=== PATIENT | female | born 1995 | race Caucasian/White ===

== ENCOUNTER 2022-12-31 09:55 | Outpatient (CLI) | payer OTHER, SELFPAY ==
[2022-12-31 11:35] LABS: Beta HCG Quantitative < 2.39 mIU/ML
[2023-01-04 04:47] LABS: Progesterone <0.2 ng/mL (***)
== END 2022-12-31 09:56 | disposition home or self-care (01) ==
PROVIDERS: Visit Provider Obstetrics & Gynecology
DX: O20.0 Threatened abortion (principal); Z3A.00 Weeks of gestation of pregnancy not specified
CPT/HCPCS: 36415; 84144; 84702

== ENCOUNTER 2023-05-02 14:21 | Outpatient (CLI) | payer OTHER, SELFPAY ==
[2023-05-02 15:48] LABS: Beta HCG Quantitative < 2.39 mIU/ML
== END 2023-05-02 14:22 | disposition home or self-care (01) ==
LOC: ANHLAB 14:23
PROVIDERS: Visit Provider Obstetrics & Gynecology
DX: N92.5 Other specified irregular menstruation (principal)
CPT/HCPCS: 36415; 84702

== ENCOUNTER 2023-06-04 11:42 | Outpatient (CLI) | payer OTHER, SELFPAY ==
--- NOTE | ~2023-06-04 | XR_ITS ---
EXAMINATION: XR hysterosalpingogram DATE: 06/04/2023 12:12 INDICATION: Infertility TECHNIQUE: 2 fluoroscopic images were obtained during contrast infusion into the endometrial canal of the uterus by the primary physician. Fluoroscopy exposure time was 0.4 minutes. FINDINGS: The uterine cavity demonstrates normal morphology. The fallopian tubes are normal in caliber and pat ent bilaterally. There is normal spillage of contrast into the peritoneum on both sides. IMPRESSION: 1. Normal hysterosalpingogram. Reviewed, dictated and finalized at location A. [employer]ATCH[employer]
== END 2023-06-04 11:43 | disposition home or self-care (01) ==
PROVIDERS: PCP Physician Assistant; Visit Provider Obstetrics & Gynecology
DX: N97.0 Female infertility associated with anovulation (principal)
CPT/HCPCS: 58340; 74740; Q9966

== ENCOUNTER 2023-07-24 12:09 | Outpatient (CLI) | payer OTHER, SELFPAY ==
[2023-07-24 13:54] LABS: Beta HCG Quantitative 169.26 mIU/ML
[2023-07-27 07:36] LABS: Progesterone 47.5 ng/mL (***)
== END 2023-07-24 12:10 | disposition home or self-care (01) ==
LOC: ANHLAB 12:11
PROVIDERS: PCP Physician Assistant; Visit Provider Obstetrics & Gynecology
DX: Z34.91 Encounter for supervision of normal pregnancy, unspecified, first trimester (principal); Z3A.00 Weeks of gestation of pregnancy not specified
CPT/HCPCS: 36415; 84144; 84702

== ENCOUNTER 2023-07-26 08:42 | Outpatient (CLI) | payer OTHER, SELFPAY | END 2023-07-26 08:43 | disposition home or self-care (01) | LOC: ANHLAB 08:44 | PROVIDERS: PCP Physician Assistant; Visit Provider Obstetrics & Gynecology | DX: Z34.80 Encounter for supervision of other normal pregnancy, unspecified trimester (principal); Z3A.00 Weeks of gestation of pregnancy not specified | CPT/HCPCS: 36415; 84702 ==

== ENCOUNTER 2023-07-30 06:56 | Outpatient (CLI) | payer OTHER, SELFPAY ==
[2023-08-02 06:27] LABS: Progesterone 27.7 ng/mL (***)
== END 2023-07-30 06:57 | disposition home or self-care (01) ==
LOC: ANHLAB 06:58
PROVIDERS: PCP Physician Assistant; Visit Provider Obstetrics & Gynecology
DX: Z34.90 Encounter for supervision of normal pregnancy, unspecified, unspecified trimester (principal); Z3A.00 Weeks of gestation of pregnancy not specified
CPT/HCPCS: 36415; 84144; 84702

== ENCOUNTER 2023-08-05 06:43 | Outpatient (CLI) | payer OTHER, SELFPAY ==
[2023-08-08 06:33] LABS: Progesterone 23.6 ng/mL (***)
== END 2023-08-05 06:44 | disposition home or self-care (01) ==
LOC: ANHLAB 06:44
PROVIDERS: PCP Physician Assistant; Visit Provider Obstetrics & Gynecology
DX: Z34.90 Encounter for supervision of normal pregnancy, unspecified, unspecified trimester (principal); Z3A.00 Weeks of gestation of pregnancy not specified
CPT/HCPCS: 36415; 84144; 84702

== ENCOUNTER 2024-01-16 16:40 | Outpatient (RCR) | payer OTHER, SELFPAY ==
[2024-01-16] MEDS: RHO(D) IMMUNE GLOBULIN 300 MCG/2 ML SYRINGE IM (20:50)
== END 2024-04-15 23:59 | disposition home or self-care (01) ==
LOC: ANHLAB 16:40
PROVIDERS: PCP Physician Assistant; Visit Provider Obstetrics & Gynecology
DX: Z29.13 Encounter for prophylactic Rho(D) immune globulin (principal); O36.0190 Maternal care for anti-D [Rh] antibodies, unspecified trimester, not applicable or unspecified; Z3A.00 Weeks of gestation of pregnancy not specified
CPT/HCPCS: 36415; 85461; 86850; 86900; 86901; 90384; J2790

== ENCOUNTER 2024-01-31 14:53 | Outpatient (CLI) | payer OTHER, SELFPAY ==
[2024-01-31] VITALS (14 sets, daily range): BP systolic 140–156; BP diastolic 73–85; PULSE 75–89; BMI 37.6
[2024-01-31 16:05] LABS: Basophils Percent Auto 0.2 % (0.2-1.2); Hemoglobin 11.8 g/dL (12.0-15.0); Immature Granulocyte Absolute 0.18 K/mm3 (0.00-0.031); Immature Granulocyte Percent A 1.4 % (0-0.5); Lymphocytes Absolute Auto 2.29 K/mm3 (0.9-3.2); Lymphocytes Percent Auto 17.3 % (18.3-44.2); Mean Corpuscular HGB Conc 32.8 g/dl (32-36); Mean Corpuscular Hemoglobin 31.6 pg (26-34); Mean Corpuscular Volume 96.3 fl (80-100); Mean Platelet Volume 10.4 fl (7.4-10.4); Monocytes Absolute Auto 1.3 K/mm3 (0.1-0.6); Monocytes Percent Auto 9.5 % (2.6-8.5); Neutrophils Absolute Auto 9.5 K/mm3 (1.3-6.7); Neutrophils Percent Auto 71.6 % (45.5-73.1); Nucleated Red Blood Cells Perc 0.2 % (0.0-0.2); Platelet Count Result 232 k/mm3 (150-375); Red Blood Count 3.74 M/mm3 (4.2-5.4); Red Cell Distribution Width 13.3 % (11.5-14.5); White Blood Count 13.3 K/mm3 (4.5-10.0)
[2024-01-31 16:11] LABS: Creatinine Urine 28.7 mg/dL; Total Protein Urine Random 17 mg/dL; Ur Ttl Prot Creatinine Ratio 0.59 mg/mg (0-0.20)
[2024-01-31 16:13] LABS: Add Urine Microscopic? YES; Appearance Urine Clear (Clear); Bacteria Urine None Seen /hpf; Bilirubin Urine Negative (Negative); Blood Urine Negative (Negative); Color Urine Yellow (Yellow); Glucose Urine UA Negative (Negative); Ketones Urine Negative (Negative); Leukocyte Esterase Ur 1+ LEU/UL (Negative); Need Manual Microscopic Reviewed; Nitrate Urine Negative (Negative); Non Pathogenic Casts 0-2; Protein Urine Negative (Negative); RBC Urine 0-2 /hpf (0-2); Specific Grav Ur 1.007 (1.001-1.035); Squamous Epithelial Cell Urine Occasional /hpf (Few); Urobilinogen Urine 0.2 mg/dL (<2.0); WBC Urine 0-5 /hpf (0-3)
[2024-01-31 16:18] LABS: Alanine Aminotransferase 11 U/L (6-35); Albumin Level 3.2 g/dL (3.5-5.1); Alkaline Phosphatase 84 U/L (38-126); Anion Gap 8 mmol/L (4-12); Aspartate Amino Transferase 16 U/L (14-36); Bilirubin,Total 0.2 mg/dL (0.2-1.3); Blood Urea Nitrogen 11 mg/dL (7-17); Calcium 9.4 mg/dL (8.4-10.2); Carbon Dioxide 20 mmol/L (22-30); Chloride 106 mmol/L (98-107); Estimated CRCL calculation 176 ml/min; Estimated Glomerular Filt Rate > 60; Glucose 108 mg/dL (65-110); Potassium 3.9 mmol/L (3.4-5.0); Sodium 134 mmol/L (137-145); Uric Acid 5.6 mg/dL (2.5-7.5)
[2024-01-31] MEDS: NIFEdipine 10 MG CAPSULE 20 MG PO (16:34)
--- NOTE | 2024-01-31 16:49 | PC.NURSE ---
6209--Report to Dr. Mar re: BP's, fhr tracings, assessment findings, and lab results. Orders for procardia 20mg po now and continue to watch BP's for the next hour and to DC fhr monitoring at this time.
--- NOTE | 2024-01-31 17:57 | PC.NURSE ---
1755--Report to Dr. Mar re: BP's since Procardia. Orders to DC pt. home with procardia 20mg po BID, and instructions for 24hr urine.
== END 2024-01-31 18:15 | disposition home or self-care (01) ==
LOC: ANHOBOP 15:01 → ANHOBPP 15:02
PROVIDERS: PCP Physician Assistant; Visit Provider Obstetrics & Gynecology
DX: O13.9 Gestational [pregnancy-induced] hypertension without significant proteinuria, unspecified trimester (principal); Z3A.00 Weeks of gestation of pregnancy not specified
CPT/HCPCS: 36415; 59025; 80053; 81001; 82570; 84156; 84550; 85025; 99199; A9270

== ENCOUNTER 2024-02-01 18:54 | Outpatient (CLI) | payer OTHER, SELFPAY ==
[2024-02-01 21:18] LABS: Collection Time Urine 24 HOURS; Total Volume 24 Hour Urine 3000 ml
[2024-02-01 21:23] LABS: Specific Gravity Ur 1.015
[2024-02-01 21:28] LABS: Creatinine Urine 61.7 mg/dL; Total Protein Urine 24 Hr 450 mg/24hr (28-141); Total Protein Urine Random 15 mg/dL
[2024-02-01 21:40] LABS: Creatinine Clearance Urine 204.2 ml/min (75-125); Patient Weight 240 Lbs
== END 2024-02-01 18:55 | disposition home or self-care (01) ==
LOC: ANHOBOP 19:01
PROVIDERS: PCP Physician Assistant; Visit Provider Obstetrics & Gynecology
DX: O13.9 Gestational [pregnancy-induced] hypertension without significant proteinuria, unspecified trimester (principal); Z3A.00 Weeks of gestation of pregnancy not specified
CPT/HCPCS: 81050; 82575; 84156

== ENCOUNTER 2024-02-10 15:54 | Observation (INO) | payer OTHER, SELFPAY ==
[2024-02-10] VITALS (38 sets, daily range): BP systolic 137–186; BP diastolic 74–93; PULSE 81–116; RESP 20; TEMP 37; O2SAT 98
--- NOTE | ~2024-02-10 | US_ITS ---
LIMITED OBSTETRIC ULTRASOUND/BIOPHYSICAL PROFILE Ordering provider: Raul Osborne MD History: . HTN - Twins . Comparison: None. FINDINGS: Twin . Ultrasound age is 32 weeks 6 days for baby B and 32 weeks for baby A. PRESENTATION: A and B Vertex.. Longitudinal lie. PLACENTAL LOCATION: Anterior No previa. HEART RATE: A and B 153 bpm (normal is between 110 to 160 bpm). AMNIOTIC FLUID INDEX: Largest vertical pocket is 7.3 cm. Estimated weight for baby A is 2032 gm EFW/GP is 39.6%. Estimated weight for baby 2111gm. EFW/GP ages 51.4%. SCORE: A and B breathing movements: 2 movements: 2 tone: 2 Amniotic fluid volume: 2 Total: 8 IMPRESSION: Monochorionic Monochorionic monoamniotic Twin . Normal biophysical profile. Reviewed, dictated and finalized at location A. IMPRESSION: Monochorionic Monochorionic monoamniotic Twin . Normal biophysical profile.
--- NOTE | 2024-02-10 12:00 | OBADM ---
This patient, Valorie Arana, admitted to the OB room [facility] for observation. Patient/family oriented to hospital policies and general routines including ID bracelet, bed and alarms, visiting hours, pain management, procedures, bathroom and other care routines, personal items, smoking policy, room service/diet, and visiting hours. Patient/Family are encouraged to report perceived risks to care and to ask questions if they do not understand what they are told or what they should do.
--- NOTE | 2024-02-10 12:00 | PC.NURSE ---
Dr Osborne informed of BP's and difficultly monitoring the twins, orders received.
[2024-02-10] MEDS: NIFEdipine 10 MG CAPSULE PO ×2 (12:40→14:06)
[2024-02-10 12:41] LABS: Basophils Percent Auto 0.2 % (0.2-1.2); Hematocrit 37.5 % (37.0-47.0); Hemoglobin 12.7 g/dL (12.0-15.0); Immature Granulocyte Percent A 0.8 % (0-0.5); Lymphocytes Absolute Auto 2.27 K/mm3 (0.9-3.2); Lymphocytes Percent Auto 17.6 % (18.3-44.2); Mean Corpuscular HGB Conc 33.9 g/dl (32-36); Mean Corpuscular Hemoglobin 32.1 pg (26-34); Mean Corpuscular Volume 94.7 fl (80-100); Mean Platelet Volume 10.4 fl (7.4-10.4); Monocytes Percent Auto 7.8 % (2.6-8.5); Neutrophils Absolute Auto 9.5 K/mm3 (1.3-6.7); Neutrophils Percent Auto 73.6 % (45.5-73.1); Platelet Count Result 236 k/mm3 (150-375); Red Blood Count 3.96 M/mm3 (4.2-5.4); Red Cell Distribution Width 13.5 % (11.5-14.5); White Blood Count 12.9 K/mm3 (4.5-10.0)
[2024-02-10 12:46] LABS: Add Urine Microscopic? YES; Appearance Urine Clear (Clear); Bacteria Urine None Seen /hpf; Bilirubin Urine Negative (Negative); Blood Urine Trace (Negative); Color Urine Yellow (Yellow); Glucose Urine UA Negative (Negative); Ketones Urine Negative (Negative); Leukocyte Esterase Ur Trace LEU/UL (Negative); Nitrate Urine Negative (Negative); Non Pathogenic Casts 0-2; Protein Urine 2+ mg/dL (Negative); RBC Urine 0-2 /hpf (0-2); Specific Grav Ur 1.009 (1.001-1.035); Squamous Epithelial Cell Urine Moderate /hpf (Few); Urobilinogen Urine 0.2 mg/dL (<2.0)
[2024-02-10 12:51] LABS: Creatinine Urine 51.5 mg/dL; Total Protein Urine Random 129 mg/dL
[2024-02-10 12:59] LABS: Alanine Aminotransferase 15 U/L (6-35); Albumin Level 3.2 g/dL (3.5-5.1); Alkaline Phosphatase 89 U/L (38-126); Anion Gap 12 mmol/L (4-12); Aspartate Amino Transferase 22 U/L (14-36); Bilirubin,Total 0.4 mg/dL (0.2-1.3); Blood Urea Nitrogen 8 mg/dL (7-17); Calcium 8.9 mg/dL (8.4-10.2); Carbon Dioxide 17 mmol/L (22-30); Chloride 106 mmol/L (98-107); Estimated Glomerular Filt Rate > 60; Glucose 119 mg/dL (65-110); Potassium 4.2 mmol/L (3.4-5.0); Sodium 135 mmol/L (137-145); Uric Acid 6.6 mg/dL (2.5-7.5)
--- NOTE | 2024-02-10 13:49 | PC.NURSE ---
Dr Osborne updated on Lab results and Current BP's. New orders received.
--- NOTE | 2024-02-10 15:05 | PC.NURSE ---
Message left at office for Dr Osborne to return call.
--- NOTE | 2024-02-10 15:45 | PC.NURSE ---
Dr Osborne paged.
[2024-02-10] MEDS: LABETALOL HCL INJ 100 MG/20 ML VIAL 20 MG IV PUSH (16:14)
--- NOTE | 2024-02-10 18:55 | PM.IMHP ---
H&P: HPI History of Present Illness Date/Time: 02/10/24 18:55 Chief Complaint: Decreased movement Narrative: 28 y/o at 32 5/7 weeks with di/di twins, here with decreased movement. Her bp increased last week. She had a 24 hour urine protein last week at 450 mg, and bp has been stable on Procardia XL 30 mg bid. No headache, no abdominal pain, no visual field change. Here she was found to have bp in the 160/90 range. She was given two doses of nifedipine 10 mg, but bp did not respond. She then received labetalol 20 mg IV and bp is now in the 140/80 range. Rh neg, received Rhogam. GCT normal at 116. US has shown good growth, vtx/vtx. Review of Systems Review of Systems: All systems reviewed & are unremarkable except as noted in HPI and below PMFSH Past Medical History Medical History Asthma GERD (gastroesophageal reflux disease) Migraines Tremor Meds Home Medications and Allergies Home Medications Medication Instructions Recorded Confirmed Type loratadine 10 mg tablet (Claritin) 10 mg PO DAILY 01/31/24 01/31/24 History nifedipine 20 mg capsule 20 mg PO BID #28 caps 01/31/24 Rx pantoprazole 40 mg tablet,delayed 40 mg PO DAILY 01/31/24 01/31/24 History release propranolol 10 mg tablet 5 mg PO DAILY 01/31/24 01/31/24 History Allergies Allergy/AdvReac Type Severity Reaction Status Date / Time Sulfa (Sulfonamide Allergy Mild Rash Verified 01/03/23 12:06 Antibiotics) Vital Signs Vital Signs - 24 hr 02/10/24 12:36 02/10/24 12:45 02/10/24 13:17 Pulse Rate 88 81 89 Blood Pressure 166/89 H 157/88 H 160/93 H Oxygen Delivery 02/10/24 13:30 02/10/24 14:00 02/10/24 14:30 Pulse Rate 84 85 89 Blood Pressure 154/89 H 150/86 H 152/91 H Oxygen Delivery 02/10/24 15:00 02/10/24 15:30 02/10/24 16:00 Pulse Rate 105 H 116 H 111 H Blood Pressure 167/93 H 163/93 H 161/84 H Oxygen Delivery 02/10/24 16:17 02/10/24 16:20 02/10/24 16:25 Pulse Rate 91 92 90 Blood Pressure 143/76 H 140/78 138/75 Oxygen Delivery 02/10/24 16:30 02/10/24 16:35 02/10/24 16:40 Pulse Rate 91 95 90 Blood Pressure 142/79 H 143/83 H 143/83 H Oxygen Delivery 02/10/24 16:45 02/10/24 16:50 02/10/24 16:55 Pulse Rate 92 91 93 Blood Pressure 143/82 H 142/82 H 148/82 H Oxygen Delivery 02/10/24 17:00 02/10/24 17:05 02/10/24 17:10 Pulse Rate 95 95 89 Blood Pressure 139/80 137/83 139/77 Oxygen Delivery 02/10/24 17:15 02/10/24 17:20 02/10/24 17:25 Pulse Rate 92 93 92 Blood Pressure 142/74 H 147/77 H 145/74 H Oxygen Delivery 02/10/24 17:30 02/10/24 17:45 02/10/24 18:00 Pulse Rate 91 94 94 Blood Pressure 143/80 H 158/89 H 150/81 H Oxygen Delivery 02/10/24 18:30 02/10/24 18:45 02/10/24 16:14 Pulse Rate 89 92 98 Blood Pressure 148/84 H 155/82 H Oxygen Delivery 02/10/24 12:00 02/10/24 12:00 Pulse Rate Blood Pressure Oxygen Delivery Room Air Room Air Exam Const: Orientation/consciousness: patient oriented x3 Other: Well-developed, well-nourished female in no acute distress. Neck: Thyroid: thyroid normal Lymphatic: no lymphadenopathy noted (in neck, axilla or inguinal nodes) Resp: Effort & Inspection: normal respiratory effort Auscultation: clear to auscultation bilaterally Cardio: Rate: regular rate Rhythm: regular rhythm Heart sounds: S1 normal heart sound present and S2 normal heart sound present GI: Other: ABD: Soft, nontender, gravid. NST reactive x 2. No guarding or rebound tenderness. No hepatosplenomegaly. : General: Yes no CVA tenderness Other: Deferred Back/Spine/Pelvis: Back: no CVA tenderness Skin: General skin exam: normal color and no rashes or lesions noted Neuro: General: patient oriented x3 Extrem: Other: Extremities: nontender with pitting edema bilaterally Psych: Mental Status: mental status grossly normal
[2024-02-10] MEDS: MAGNESIUM SULF 4 GM/WATER100ML 4 GM/100 ML BAG IVPB (19:39)
[2024-02-10] MEDS: BETAMETHASONE SOD PHOS/ACETATE 30 MG/5 ML VIAL 12 MG IM (19:44)
[2024-02-10] MEDS: LABETALOL HCL INJ 100 MG/20 ML VIAL 40 MG IV PUSH (20:20)
== END 2024-02-10 20:45 ==
LOC: ANHOBOP 16:21 → ANHOBPP 16:21
PROVIDERS: Admitting Provider Obstetrics & Gynecology; PCP Physician Assistant; Visit Provider Obstetrics & Gynecology
DX: O36.8130 Decreased fetal movements, third trimester, not applicable or unspecified (principal); O30.043 Twin pregnancy, dichorionic/diamniotic, third trimester; Z3A.32 32 weeks gestation of pregnancy; O14.93 Unspecified pre-eclampsia, third trimester
CPT/HCPCS: 36415; 76816; 76819; 80053; 81001; 82570; 84156; 84550; 85025; 87086; 96372; 96374; 96375; A9270; G0378; G0379; J0702; J3475

== ENCOUNTER 2024-05-08 08:46 | Outpatient (CLI) | payer OTHER, SELFPAY ==
[2024-05-08 09:14] LABS: Basophils Percent Auto 0.1 % (0.2-1.2); Immature Granulocyte Absolute 0.01 K/mm3 (0.00-0.031); Immature Granulocyte Percent A 0.1 % (0-0.5); Lymphocytes Absolute Auto 1.48 K/mm3 (0.9-3.2); Lymphocytes Percent Auto 19.2 % (18.3-44.2); Mean Corpuscular HGB Conc 32.6 g/dl (32-36); Mean Corpuscular Hemoglobin 29.9 pg (26-34); Mean Corpuscular Volume 91.9 fl (80-100); Mean Platelet Volume 9.9 fl (7.4-10.4); Monocytes Absolute Auto 0.6 K/mm3 (0.1-0.6); Monocytes Percent Auto 7.9 % (2.6-8.5); Neutrophils Absolute Auto 5.6 K/mm3 (1.3-6.7); Neutrophils Percent Auto 72.7 % (45.5-73.1); Platelet Count Result 265 k/mm3 (150-375); Red Blood Count 4.68 M/mm3 (4.2-5.4); Red Cell Distribution Width 13.2 % (11.5-14.5); White Blood Count 7.7 K/mm3 (4.5-10.0)
[2024-05-08 10:15] LABS: Alanine Aminotransferase 24 U/L (6-35); Albumin Level 4.2 g/dL (3.5-5.1); Alkaline Phosphatase 77 U/L (38-126); Anion Gap 7 mmol/L (4-12); Aspartate Amino Transferase 23 U/L (14-36); Bilirubin,Total 0.6 mg/dL (0.2-1.3); Blood Urea Nitrogen 9 mg/dL (7-17); Calcium 9.4 mg/dL (8.4-10.2); Carbon Dioxide 27 mmol/L (22-30); Chloride 105 mmol/L (98-107); Cholesterol 245 mg/dL (0-200); Estimated Glomerular Filt Rate > 60; Glucose 109 mg/dL (65-110); HDL Direct 51 mg/dL; Sodium 139 mmol/L (137-145); Triglycerides 109 mg/dL (<150)
[2024-05-08 10:26] LABS: LDL Cholesterol Direct 128 mg/dL
[2024-05-08 12:58] LABS: Iron 52 ug/dL (37-170)
[2024-05-08 13:08] LABS: Percent Iron Saturation 16 % (20-50)
== END 2024-05-08 08:47 | disposition home or self-care (01) ==
LOC: ANHLAB 08:48
PROVIDERS: PCP Physician Assistant; Visit Provider Physician Assistant
DX: Z00.00 Encounter for general adult medical examination without abnormal findings (principal); R53.83 Other fatigue; D50.9 Iron deficiency anemia, unspecified
CPT/HCPCS: 36415; 80053; 80061; 83540; 83550; 84443; 85025

== ENCOUNTER 2025-05-17 13:08 | Outpatient (CLI) | payer OTHER, SELFPAY ==
[2025-05-17 14:33] LABS: Thyroid Stimulating Hormone Reflex 2.030 uIU/mL (0.465-4.68)
--- OUTSIDE RECORDS SUMMARY | 2025-05-17 22:18 | XMS_ITS | Clinical Summary ---
Author Organization [facility] Address [address] [place] [address] Care Team Providers Care Chief Scientific Officer Name Role Phone Joe Parker Primary Care Provider Raul Osborne MD Unavailable Allergies Active Allergy Reactions Criticality Noted Date Comments Sulfa (Sulfonamide Antibiotics) Medications 25/iron fum/folic/dha (-1 ORAL) Active albuterol HFA (PROVENTIL HFA,VENTOLIN HFA,PROAIR HFA) 90 mcg/actuation inhaler Inhale 2 puffs every 6 (six) hours as needed for wheezing 1 each 024 2024 Active ipratropium-albu teroL (DUO-NEB) 0.5-2.5 mg/3 mL nebulizer solutionIndicati ons:Chronic Obstructive Pulmonary Disease with Bronchospasms Take 3 mL by nebulization 4 (four) times a day as needed for wheezing or shortness of breath 90 mL Active fluticasone-umec lidin-vilanter (Trelegy Ellipta) 200-62.5-25 mcg inhaler Inhale 1 puff daily Rinse mouth out after each use 1 each Active loratadine (Claritin) 10 mg tablet Take 1 tablet (10 mg total) by mouth Active sertraline (ZOLOFT) 50 mg tablet Take 1.5 tablets (75 mg total) by mouth daily Active pantoprazole DR (PROTONIX) 40 mg EC tablet Take 1 tablet (40 mg total) by mouth daily 90 tablet 4 025 2025 Active propranolol LA (INDERAL LA) 60 mg 24 hr capsule Take 1 capsule (60 mg total) by mouth daily 90 capsule 3 [address] (PROTONIX) 40 mg EC tablet Take 1 tablet (40 mg total) by mouth daily 90 tablet 4 024 2024 Discontinued(R eorder) propranoloL (INDERAL) 10 mg tablet Take 1 tablet (10 mg total) by mouth 3 (three) times a day As needed for tremor 90 tablet 11 025 2024 Discontinued methylPREDNISolo ne (MEDROL DOSEPACK) 4 mg Dosepack Take as directed on package. 21 tablet 025 2024 amoxicillin-clav ulanate (AUGMENTIN) 875-125 mg per tablet Take 1 tablet by mouth 2 (two) times a day for 10 days 20 tablet 025 2024 Active Problems Problem Noted Date Diagnosed Date BMI 28.0-28.9,adult 05/11/2025 BMI 28.0-28.9,adult 04/15/2025 Pure hypercholesterolemia 12/15/2024 Assessment & Plan (05/11/2025 7:58 AM REORDERING CLERK): Counseled on heart healthy diet exercise Intention tremor 02/22/2022 Assessment & Plan (02/22/2022 2:37 PM CDT): Controlled with trace dose inderal. Migraine without aura and wi thout status migrainosus, not intractable 02/22/2022 Assessment & Plan (02/22/2022 2:38 PM CDT): Inderal low dose prevents as when forgets them gets a headache. PE (physical exam), annual 02/19/2022 Assessment & Plan (05/11/2025 7:58 AM REORDERING CLERK): Discussed routine screenings and vaccines Assessment & Plan (05/06/2024 1:50 PM REORDERING CLERK): Discussed routine screenings and vaccines Assessment & Plan (02/22/2022 2:36 PM CDT): Well exxam. Healthy female going thru period isues and seeing safety person with labs done and pending. Asthma.not active and only occasional aware in haarvest . Taking singular and works well. pren albuterol and use prn albuterol.. await labs tsh trace high and not likely an issue causing any problems. Had vaccibnes neg hep b screen and had all shots and karen get booster at [facility]. DUB (dysfunctional uterine bleeding) 02/19/2022 Assessment & Plan (03/01/2022 4:17 PM CDT): She has stopped her pills Possible polyp vs fibroid Rto 3m for f/u Assessment & Plan (02/19/2022 11:41 AM CDT): To tsh, cbc To usg rto after. Pityriasis rosea 04/11/2020 Assessment & Plan (04/11/2020 4:38 PM CDT): [place] patch on l breast with presnce on chest abd and back as pruetic Prn antihisitamines Topica Steroid with kenalog /1% prn use. 5-6 wks legt in all likelyhoood. Gastroesophageal reflux disease without esophagi tis 08/05/2018 Assessment & Plan (02/22/2022 2:27 PM CDT): gerd stable and gone on meds Assessment & Plan (04/11/2020 4:39 PM CDT): otc ppi not as effective as prior And asked to restart the 40 mg nexium . Diet and life style discussedgerd is best treated with life style changes. The more you can do these within your life style the more your heart burn or acid related issues will improve and not require meds. aicds are stopped And this include carbonation,tomatoe based items,fruit juices and quantities of fruit I general. You want an empty stomach on going to bed or laying down. This includes a full glass of water which takes up to an hour to clear the stomach.The gi specialist ask that you not eat for up to 5 hours before going to bed,Blockingthe head of the bed up 4 is also felt to be helpful. Fats in the diet cause an issue by staying in the Stomach longer then other foods so the stomach ends up not emptying and staying smith then usual as a result with a higher degree of acids being put into the stomach in an attempt to Breakdown the fatty food. Realize that aicd meds such as prilosec/prevacid/protonix/nexium Along with tagemet and zantac suppress the acid the stomach produces and does not neutralize the stomach contents. To do this you have to use an antiacids.Gaviscon has been used specifically for heartburn/gerd from the first but all the antiacids have a gerd variety of there product, in addition any liquid antiacids will be far better then the usual tums or rolaids. Assessment & Plan (08/05/2018 1:58 PM REORDERING CLERK): Despite 40 of nexium still can breakthru with somewhat diet care and if not karen breakthru more. Ask to be more life styule changes and diet adjustment and contthe nexriou 40 daily and add zantac 150 once a day at opposite time. Really prefer not to Put at this age a 40 bid dose of meds and work to see if behves for 1-2-3 wks can stop the C.o . Mild intermittent asthma without complication Assessment & Plan (05/11/2025 7:58 AM REORDERING CLERK): Discussed asthma action plan Assessment & Plan (04/15/2025 6:47 AM CDT): Discussed asthma action plan Assessment & Plan (05/06/2024 1:50 PM REORDERING CLERK): Discussed asthma action plan Assessment & Plan (02/22/2022 2:28 PM CDT): Asthma only fall with harvest and not needing albuterol but has refilled so availble. Assessment & Plan (08/05/2018 2:02 PM REORDERING CLERK): Last script last Spring. Told grew out of. Now relates with a cold will go to lungs and wheeze. [place] fvc 82 and fev1 87 and fev1 % 91., nl prn rescue inhaler and Consider a symbicort for acute flairs fro colds. Fall flu shots Resolved Problems Problem Noted Date Diagnosed Date Resolved Date Acute pansinusitis 04/15/2025 Encounter for preconception consultation 02/19/2022 05/06/2024 Overview (03/01/2022): Partner is white No family h/o NTD or defects She had chicken pox To MVI. Genetic testing discussed.- She will d/w her - she doesn't want to do 01/2022 Needs rubella titer- immune 01/2022 Assessment & Plan (03/01/2022 4:18 PM CDT): She is on MVI Declines genetic testing. Assessment & Plan (02/19/2022 11:40 AM CDT): Partner is white No family h/o NTD or defects She had chicken pox To MVI. Genetic testing discussed.- She will d/w her Needs rubella titer BMI 22.0-22.9, adult 08/05/2018 023 Assessment & Plan (02/22/2022 2:27 PM CDT): Wt touch up wt'ed yesterday and stilll nl. Assessment & Plan (04/11/2020 4:40 PM CDT): Wt very nl and working up Assessment & Plan (08/05/2018 1:59 PM REORDERING CLERK): Work to deep wt stable. No need to drop wt but if wants to look different then should do activity to mold/model body Encounters Date Type Department Care Team Description 05/11/2025 11:00 AM REORDERING CLERK Office Visit [facility] at [address] [phone] Joe Parker PA PE (physical exam), annual (Primary Dx); Pure hypercholesterolemia; Mild intermittent asthma without complication; Intention tremor; BMI 28.0-28.9,adult; Gastroesophageal reflux disease without esophagitis; Iron deficiency anemia, unspecified iron deficiency anemia type 05/07/2025 Orders Only [facility] at [address] [phone] Joe Parker PA 04/15/2025 7:15 AM CDT Office Visit [facility] at [address] [phone] Joe Parker PA Acute pansinusitis, recurrence not specified (Primary Dx); Mild intermittent asthma with acute exacerbation; BMI 28.0-28.9,adult from Last 3 Months Immunizations Immunization Administration Dates Next Due DTP 07/16/1995, 5,1994,05/15 DTP / HiB 07/16/1995, 5,1994,05/15 HPV, Quadrivalent 02/05/2013,12/11/2011,01/09/20 11 HPV, Unspecified 02/05/2013,12/11/2011, 1 Hep B, Adolescent or Pediatric 1994,1993,1994 HiB 07/16/1995, 5,1994,05/15 Influenza, Quadrivalent, Spl it, Preservative Free, Intramuscular 04/15/2025(Deferred: Patient Refused),04/12/2021,04/02/2020 Influenza, Trivalent, Preser vative Free, Intramuscular 05/11/2025 Influenza, Unspecified 04/09/2024,2022,04/11/2022,02/22(Deferred: Patient Refused),04/10/2019,04/04/2018 MMR 07/16/1995 Meningococcal ACWY, Unspecified 02/07/2009 Meningococcal C Conjugate 02/07/2009 OPV 1994,1994,1994 OPV, Unspecified 1994,1994, 4 PPD TEST 01/13/2020 Pneumococcal Conjugate Pcv20 05/07/2024 Td, adsorbed 01/13/2020 Tdap 02/07/2009 Surgical History Surgery Date Site/Laterality Comments TENDON REPAIR 07/01/2012 - 06/30/2013 Right R ankle repair Medical History Medical History Date Comments GERD (gastroesophageal reflux disease) Asthma Family History Medical History Relation Name Comments Hyperlipidemia Father Hyperlipidemia Mother Heart attack Other 1 Aunt Myocardial infa rction; Before age 60 Other Other 2 1 Cancer Neg Hx No colon, breas t or safety person cancer 02/19/22 Relation Name Status Comments Father Mother Other 1 Aunt Alive Other 2 Social History Tobacco Use Types Packs/Day Years Used Date Smoking Tobacco: Never Smokeless Tobacco: Never Tobacco Cessation:Counseling Given: Not Answered Alcohol Use Standard Drinks/Week Comments Not Currently 0 (1 standard drink = 0.6 oz pur e alcohol) Humiliation, Afraid, Rape, and Kick questionnair e Answer Date Recorded Within the last year, have y ou been afraid of your partner or ex-partner? No 02/19/2022 Within the last year, have y ou been humiliated or emotionally abused in other ways by your partner or ex-partner? No Within the last year, have y ou been kicked, hit, slapped, or otherwise physically hurt by your partner or ex-partner? No 02/19/2022 Within the last year, have y ou been raped or forced to have any kind of sexual activity by your partner or ex-partner? No 02/19/2022 PHQ-2 Answer Date Recorded PHQ-2 Total Score (If total score is 3 or more points, staff should administer the PHQ-9) 0 05/11/2025 AUDIT-C Answer Date Recorded Q1: How often do you have a drink containing alcohol? Never 05/11/2025 Q2: How many drinks containi ng alcohol do you have on a typical day when you are drinking? Patient does not drink Q3: How often do you have si x or more drinks on one occasion? Never 05/11/2025 Comments No Sex and Gender Information Value Date Recorded Sex Assigned at Not on file Legal Sex Female 2:35 AM REORDERING CLERK Gender Identity Female 07/10/2019 6:21 AM REORDERING CLERK Sexual Orientation Straight 07/10/2019 6: 21 AM REORDERING CLERK Obstetrics History Para Term AB IAB SAB Ectopic Multiple Livin g Live Births 0 0 0 0 0 0 0 0 0 0 0 Last Filed Vital Signs Vital Sign Reading Time Taken Comments Blood Pressure 122/78 05/11/2025 11:20 AM REORDERING CLERK Pulse 80 05/11/2025 11:20 AM REORDERING CLERK Temperature 37 C (98.6 F) 05/11/2025 11:04 AM REORDERING CLERK Respiratory Rate 16 05/11/2025 11:04 AM REORDERING CLERK Oxygen Saturation 99% 05/11/2025 11:04 AM REORDERING CLERK Inhaled Oxygen Concentration - - Weight 81.8 kg (180 lb 6.4 oz) 05/11/2025 11:04 AM REORDERING CLERK Height 168.9 cm (5' 6.5) 05/11/2025 11:04 AM CS T Body Mass Index 28.68 05/11/2025 11:04 AM REORDERING CLERK Plan of Treatment Health Maintenance Due Date Last Done Comments Hepatitis C Screening 1994 Varicella Vaccines (1 of 2 - 13+ 2-dose series) 2007 Cervical Cancer Screening 02/19/2023 02/19/2022, Covid-19 Vaccine (2 - 2024-2 6 season) 2025 04/05/2021 Depression Screening 05/11/2026 05/11/2025, 04/15/2025, 12/15/2024, Additional history exists Regular Well Visit/Exam 18-64 05/11/2026, 05/07/2024, 02/25/2023, Additional history exists DTaP/Tdap/Td Vaccine (7 - Td or Tdap) 01/12/2030 01/13/2020, 02/07/2009, 07/16/1995, Additional history exists Hepatitis B Screening Completed 1994 , 1994, 1994 HPV Vaccines Completed 02/05/2013, 08/0 01/2013, 12/11/2011, Additional history exists Pneumococcal vaccine <65 Completed 05/07/2024 Influenza Vaccine Completed 05/11/2025, , 04/04/2023, Additional history exists Procedures Procedure Name Priority Date/Time Associated Diagnosis Comments COMPREHENSIVE METABOLIC PANEL Routine 05/07/2025 7:28 AM REORDERING CLERK IRON PROFILE W/ IBC Routine 05/07/2025 7 :28 AM REORDERING CLERK LIPID PANEL Routine 05/07/2025 7:28 AM REORDERING CLERK CBC WITH AUTO DIFFERENTIAL Routine 05/07/2025 7:28 AM REORDERING CLERK PAP WITH REFLEX TO HIGH RISK HPV Routine 02/19/2022 12:22 PM CDT Well woman exam from Last 3 Months or Most Recently Relevant to Health Maintenance Results * Iron profile w/ IBC (05/07/2025 7:28 AM REORDERING CLERK) Pathologist [facility] Iron 98 40 - 190 mcg/dL [facility] TIBC 304 250 - 450 mcg/dL (calc) [facility] Iron saturation 32 16 - 45 % (calc) [facility] 05/07/2025 7:28 AM REORDERING CLERK 05/07/2025 7:29 AM REORDERING CLERK Narrative [facility] - 05/08/2025 6:26 AM REORDERING CLERK FASTING:YES FASTING: YES us Joe NAVA LAB BLOOD ORDERABLES Fi nal Result [facility] [address] [place] [address] * (ABNORMAL) CBC with auto differential (05/07/2025 7:28 AM REORDERING CLERK) Pathologist [facility] WBC 7.2 3.8 - 10.8 Thousand/u L [facility] RBC, POC 4.50 3.80 - 5.10 Million/uL [facility] Hgb 13.6 11.7 - 15.5 g/dL [facility] Hct 41.5 35.0 - 45.0 % [facility] MCV 92.2 80.0 - 100.0 fL [facility] MCH 30.2 27.0 - 33.0 pg [facility] MCHC 32.8 32.0 - 36.0 g/dL [facility] Comment: For adults, a slight decrease in the calculated MCHC value (in the range of 30 to 32 g/dL) is most likely not clinically significant; however, it should be interpreted with caution in correlation with other red cell parameters and the patient's clinical condition. Rdw 12.8 11.0 - 15.0 % [facility] Platelets 269 140 - 400 Thousand/u L [facility] MPV 10.6 7.5 - 12.5 fL [facility] Neutrophils, abs 4,291 1,500 - 7,800 cells/uL [facility] Lymphocytes, abs 2,304 850 - 3,900 cells/uL [facility] Monocyte abs 605 200 - 950 cells/uL [facility] Eosinophils, abs 0(L) 15 - 500 cells/uL [facility] Basophils, abs 0 0 - 200 cells/uL [facility] Neutrophils 59.6 % [facility] Lymphocyte pct 32.0 % [facility] Monocytes 8.4 % [facility] Eosinophils 0.0 % [facility] Basophils 0.0 % [facility] 05/07/2025 7:28 AM REORDERING CLERK 05/07/2025 7:29 AM REORDERING CLERK Narrative [facility] - 05/08/2025 6:26 AM REORDERING CLERK FASTING:YES FASTING: YES us Joe NAVA LAB BLOOD ORDERABLES Fi nal Result [facility] [address] [phone] * (ABNORMAL) Lipid panel (05/07/2025 7:28 AM REORDERING CLERK) Cholesterol 237(H) <200 mg/dL [facility] HDL 52 > OR = 50 mg/dL [facility] Triglycerides 88 <150 mg/dL [facility] LDL 166(H) mg/dL (calc) [facility] Comment: Reference range: <100 Desirable range <100 mg/dL for primary prevention; <70 mg/dL for patients with CHD or diabetic patients with > or = 2 CHD risk factors. LDL-C is now calculated using the June calculation, which is a validated novel method providing better accuracy than the Friedewald equation in the estimation of LDL-C. Rowdy SS et al. GILA. 2013;310(19): 7902-9761 (http://education.MiserWare/faq/AVU659) Chol/HDL ratio 4.6 <5.0 (calc) [facility] Non-HDL, (LDL+VLDL) 185(H) <130 mg/dL (calc) [facility] Comment: For patients with diabetes plus 1 major ASCVD risk factor, treating to a non-HDL-C goal of <100 mg/dL (LDL-C of <70 mg/dL) is considered a therapeutic option. 05/07/2025 7:28 AM REORDERING CLERK 05/07/2025 7:29 AM REORDERING CLERK Narrative [facility] - 05/08/2025 6:26 AM REORDERING CLERK FASTING:YES FASTING: YES us Joe NAVA LAB BLOOD ORDERABLES Fi nal Result [facility] [address] [place] [address] * (ABNORMAL) Comprehensive metabolic panel (05/07/2025 7:28 AM REORDERING CLERK) [facility] Glucose 88 65 - 99 mg/dL [facility] Comment: Fasting reference interval BUN 11 7 - 25 mg/dL [facility] Creatinine 0.67 0.50 - 0.97 mg/dL [facility] eGFR 120 > OR = 60 mL/min/1.7 3m2 [facility] BUN/creat ratio SEE NOTE: (calc) [facility] Comment: Not Reported: BUN and Creatinine are within reference range. Sodium 139 135 - 146 mmol/L [facility] Potassium, pl 4.4 3.5 - 5.3 mmol/L [facility] Chloride 104 98 - 110 mmol/L [facility] CO2 28 20 - 32 mmol/L [facility] Calcium 8.9 8.6 - 10.2 mg/dL [facility] Protein, sr 6.5 6.1 - 8.1 g/dL [facility] Albumin 3.9 3.6 - 5.1 g/dL [facility] GLOBULIN 2.6 1.9 - 3.7 g/dL (calc) [facility] Alb/glob ratio 1.5 1.0 - 2.5 (calc) [facility] Bilirubin, total 0.5 0.2 - 1.2 mg/dL [facility] Alk phos 55 31 - 125 U/L [facility] AST 9(L) 10 - 30 U/L [facility] ALT (SGPT) 7 6 - 29 U/L [facility] 05/07/2025 7:28 AM REORDERING CLERK 05/07/2025 7:29 AM REORDERING CLERK Narrative [facility] - 05/08/2025 6:26 AM REORDERING CLERK FASTING:YES FASTING: YES Joe NAVA LAB BLOOD ORDERABLES nal Result [facility] [address] [place] [address] * (ABNORMAL) Pap with reflex to High Risk HPV (02/19/2022 12:22 PM CDT) CLINICAL INFORMATION: oJseph Allred Comment:SCREENING LMP [facility] Comment:02/13/2022 Previous Pap [facility] Comment:INFORMATION NOT PROV IDED Prev. Bx Joseph Allred Comment:INFORMATION NOT PROV IDED SOURCE: [facility] Comment:Cervix, Endocervix Pap, specimen adequacy Joseph Allred Comment: Satisfactory for evaluation. Endocervical/transformation zone component present. Pap, general categorization (A) Joseph Allred Comment:EPITHELIAL CELL ABNO RMALITY HPV interp (A) Joseph Allred Comment: Atypical Squamous Cells of Undetermined Significance (ASC-US) COMMENTS Joseph Allred Comment: This Pap test has been evaluated with computer assisted technology. Suggest clinical correlation and follow-up as clinically appropriate Patient Advocate Que Abram Allred Comment: MEF, CT(ASCP) CT screening location: [place] [address] [place] [id number] Pathologist [facility] Comment: Brayden Christy M.D., Board Certified in Anatomic Pathology and Cytopathology. (electronic signature) Comment Joseph Allred Comment: EXPLANATORY NOTE: The Pap is a screening test for cervical cancer. It is not a diagnostic test and is subject to false negative and false positive results. It is most reliable when a satisfactory sample, regularly obtained, is submitted with relevant clinical findings and history, and when the Pap result is evaluated along with historic and current clinical information. Thin prep 02/19/2022 12:2 2 PM CDT 02/20/2022 10:14 AM CDT Angi Seth MD LAB CYTOLOGY ORDERA BLES Final Result [place] [address] [place] [phone] from Last 3 Months or Most Recently Relevant to Health Maintenance Insurance [employer] Address: [address] [place] [address] [address] Advance Directives For more information, please contact: [phone] * Full Code (Latest Code Status on File) Date Activated Date Inactivated Comments 10/25/2017 9:42 AM 10/25/2017 1:31 PM Care Teams Chief Scientific Officer Relationship Specialty Start Date End Date Joe Parker PA [address] [place] [phone] PCP - General Internal Medicine 05/28/22 Raul Osborne MD [address] [address] Referring Physician Obstetrics and Gynecology 05/11/25
== END 2025-05-17 13:09 | disposition home or self-care (01) ==
LOC: ANHLAB 13:08
PROVIDERS: PCP Physician Assistant; Visit Provider Obstetrics & Gynecology
DX: N92.6 Irregular menstruation, unspecified (principal)
CPT/HCPCS: 36415; 84144; 84146; 84443